=== PATIENT | female | born 1985 | race Caucasian/White ===

== ENCOUNTER 2018-04-12 16:35 | Emergency (ER) | payer BC, OTHER ==
[2018-04-12 16:50] VITALS: BP 109/70; PULSE 75; TEMP 98; BMI 31.4
--- NOTE | 2018-04-12 16:53 | PDOC ---
History of Present Illness - General Chief Complaint: Headache Stated Complaint: HEADACHE, DIZZINESS Time Seen by Provider: 04/12/18 16:52 Past History - Past Medical History Allergies/Adverse Reactions: Allergies Allergy/AdvReac Type Severity Reaction Status Date / Time No Known Allergies Allergy Verified 04/12/18 16:45 CVA: No (negative MRI for constant headache) COPD: No CHF: No - Suicide/Smoking/Psychosocial Hx Smoking History: Never smoked Have you smoked in the past 12 months: No Information on smoking cessation initiated: No Hx Alcohol Use: No Drug/Substance Use Hx: No Substance Use Type: None *Physical Exam - Vital Signs Last Vital Signs Temp Pulse Resp BP Pulse Ox 98.0 F 75 16 109/70 100 04/12/18 16:35 04/12/18 16:35 04/12/18 16:35 04/12/18 16:35 04/12/18 16:35
[2018-04-12] MEDS ORDERED: METOCLOPRAMIDE HCL INJECTION 10 MG/2 ML VIAL IVPUSH ONE (17:28)
[2018-04-12] MEDS ORDERED: ACETAMINOPHEN 325 MG TABLET (FP) PO ONE (17:28)
--- NOTE | 2018-04-12 17:41 | PDOC ---
History of Present Illness - General Chief Complaint: Headache Stated Complaint: HEADACHE, DIZZINESS Time Seen by Provider: 04/12/18 16:52 History Source: Patient Exam Limitations: No Limitations - History of Present Illness Initial Comments: 32 y/o F hx of migraines, recent vaginal delivery 02/21/18 presents with temporal LIAO x 6 months, gradually getting worse. States she had brain MRI done at [facility] in [place] on 02/19/18 which was negative. LIAO does not feel like her migraines. Presents today due to having intermittent vertigo from yesterday. States she feels like she is swaying on a boat. Mentions having dizziness in the past, but it has never been this bad. Dizziness is worse with looking up. Current LIAO is 6/10; states dizziness is bothering her more. Went to pharmacy and was given Meclizine 25 mg which she took around 1:30 PM, but states it did not help her much. Denies fever, ear pain, tinnitus, hearing loss , sob, cp, abd pain, n/v, visual disturbances, numbness/tingling of extremities. 04/12/18 17:37 Past History - Past Medical History Allergies/Adverse Reactions: Allergies Allergy/AdvReac Type Severity Reaction Status Date / Time No Known Allergies Allergy Verified 04/12/18 16:45 CVA: No (negative MRI for constant headache) COPD: No CHF: No - Suicide/Smoking/Psychosocial Hx Smoking History: Never smoked Have you smoked in the past 12 months: No Information on smoking cessation initiated: No Hx Alcohol Use: No Drug/Substance Use Hx: No Substance Use Type: None Review of Systems - Review of Systems Comments:: See HPI 04/12/18 18:17 *Physical Exam - Vital Signs Last Vital Signs Temp Pulse Resp BP Pulse Ox 98.0 F 75 16 109/70 100 04/12/18 16:35 04/12/18 16:35 04/12/18 16:35 04/12/18 16:35 04/12/18 16:35 - Physical Exam General Appearance: No: Apparent Distress HEENT: positive: CESILIA, Other (No nystagmus noted, no fluid noted in ear). negative: TM Bulging, TM Dull, TM Erythema Respiratory/Chest: positive: Lungs Clear, Normal Breath Sounds. negative: Respiratory Distress Cardiovascular: positive: Regular Rhythm, Regular Rate, S1, S2. negative: Murmur Gastrointestinal/Abdominal: positive: Normal Bowel Sounds, Soft. negative: Tender, Distended, Guarding, Rebound Extremity: positive: Normal Inspection. negative: Pedal Edema, Calf Tenderness Neurologic: positive: dock manager II-XII NML intact, Fully Oriented, Alert, Normal Mood/ Affect, Motor Strength 5/5, Other (Negative head thrust, negative test of skew) . negative: Numbness, Sensory Deficit ED Treatment Course - LABORATORY CBC & Chemistry Diagram: 04/12/18 17:49 04/12/18 17:49 Medical Decision Making - Medical Decision Making 32 y/o F hx of migraine with recent vaginal delivery 02/21/18 presents with acute vertigo x 2 days and chronic headache x 6 months. Likely BPPV. Also consider preeclampsia though less suspicious; it is 7 weeks post delivery and patient with normal BP. Less concerned for central vertigo due to acute onset of symptoms, no focal deficits on exam and negative HINTS exam. Less concerned for brain mass given patient had recent brain MRI outpatient 1 month ago which was negative. Plan: CBC, CMP, UA, Tylenol, Reglan, IVF 04/12/18 18:19 Labs unremarkable other than slightly elevated LFTs; no prior to compare to UA pending Patient reports improvement in LIAO and somewhat in dizziness Patient signed out to GREGORIA Rincon pending UA 04/12/18 18:57
[2018-04-12] MEDS ORDERED: SODIUM CHLORIDE 0.9% 1000 ML INFUS.BAG IV ONE (17:50)
[2018-04-12] MEDS ORDERED: ACETAMINOPHEN 1000 MG/100 ML VIAL (NON FORMULARY) IVPB ONE (17:54)
[2018-04-12] MEDS ORDERED: METOCLOPRAMIDE HCL INJECTION 10 MG/2 ML VIAL ONE (17:59)
[2018-04-12] MEDS ORDERED: ACETAMINOPHEN INJECTION 100 ML IVPB ONE (17:59)
[2018-04-12] MEDS ORDERED: SODIUM CHLORIDE 1,000 ML IV STA (18:01)
[2018-04-12 18:02] LABS: BASO % 0.4 % (0-2.0); EOS % 5.1 % (0-4.5); HEMATOCRIT 37.9 % (32.4-45.2); HEMOGLOBIN 13.1 GM/dL (10.7-15.3); LYMPH % 37.9 % (8-40); MCH 29.6 pg (25.7-33.7); MCHC 34.6 g/dl (32.0-36.0); MEAN CELL VOLUME 85.6 fl (80-96); MEAN PLT VOLUME 8.7 fl (7.5-11.1); NEUT % 51.6 % (42.8-82.8); PLATELET COUNT 269 K/MM3 (134-434); RBC 4.43 M/mm3 (3.60-5.2); RDW 15.4 % (11.6-15.6); WHITE BLOOD COUNT 6.3 K/mm3 (4.0-10.0)
[2018-04-12 18:28] LABS: ALBUMIN 3.9 g/dl (3.4-5.0); ALK PHOS 85 U/L (45-117); ANION GAP 8 MMOL/L (8-16); BILIRUBIN,TOTAL 0.2 mg/dL (0.2-1); BLOOD UREA NITROGEN 16 mg/dL (7-18); CHLORIDE 106 mmol/L (98-107); CO2 26 mmol/L (21-32); CREATININE 0.9 mg/dL (0.55-1.3); GLUCOSE,RANDOM 87 mg/dL (74-106); POTASSIUM 4.1 mmol/L (3.5-5.1); SGOT/AST 96 U/L (15-37); SGPT/ALT 198 U/L (13-61); SODIUM 140 mmol/L (136-145); TOT PROT 7.1 g/dl (6.4-8.2)
[2018-04-12 19:28] LABS: URINE APPEARANCE SLCLOUDY; URINE BILIRUBIN NEGATIVE (<2.0 mg/dL); URINE COLOR STRAW; URINE GLUCOSE (UA) NEGATIVE (NEGATIVE); URINE KETONE NEGATIVE (NEGATIVE); URINE LEUK ESTERASE 1+ (NEGATIVE); URINE NITRITE NEGATIVE (NEGATIVE); URINE PROTEIN NEGATIVE (NEGATIVE); URINE UROBILINOGEN NEGATIVE mg/dL (0.2-1.0)
--- NOTE | 2018-04-12 19:32 | PDOC ---
*Physical Exam - Vital Signs Last Vital Signs Temp Pulse Resp BP Pulse Ox 98.0 F 75 16 109/70 100 04/12/18 16:35 04/12/18 16:35 04/12/18 16:35 04/12/18 16:35 04/12/18 16:35 - Physical Exam Comments: 04/12/18 19:30 GENERAL: Well developed, well nourished. Awake and alert. No acute distress. HEENT: Normocephalic, atraumatic. PERRLA, EOMI. No conjunctival pallor. Sclera are non- icteric. Moist mucous membranes. Oropharynx is clear. NECK: Supple. Full ROM. No JVD. Carotid pulses 2+ and symmetric, without bruits. No thyromegaly. No lymphadenopathy. CARDIOVASCULAR: Regular rate and rhythm. No murmurs, rubs, or gallops. Distal pulses are 2+ and symmetric. PULMONARY: No evidence of respiratory distress. Lungs clear to auscultation bilaterally. No wheezing, rales or rhonchi. ABDOMINAL: Soft. Non-tender. Non-distended. No rebound or guarding. No organomegaly. Normoactive bowel sounds. MUSCULOSKELETAL Normal range of motion at all joints. No bony deformities or tenderness. No CVA tenderness. EXTREMITIES: No cyanosis. No clubbing. No edema. No calf tenderness. SKIN: Warm and dry. Normal capillary refill. No rashes. No jaundice. NEUROLOGICAL: Alert, awake, appropriate. Cranial nerves 2-12 intact. No deficits to light touch and temperature in face, upper extremities and lower extremities. No motor deficits in the in face, upper extremities and lower extremities. Normoreflexic in the upper and lower extremities. Normal speech. Toes are down- going bilaterally. Gait is normal without ataxia. PSYCHIATRIC: Cooperative. Good eye contact. Appropriate mood and affect. ED Treatment Course - LABORATORY CBC & Chemistry Diagram: 04/12/18 17:49 04/12/18 17:49 - ADDITIONAL ORDERS Additional order review: Laboratory Results 04/12/18 04/12/18 17:49 17:49 Sodium 140 Potassium 4.1 Chloride 106 Carbon Dioxide 26 Anion Gap 8 BUN 16 Creatinine 0.9 Creat Clearance w eGFR > 60 Random Glucose 87 Calcium 9.0 Total Bilirubin 0.2 AST 96 H ALT 198 H Alkaline Phosphatase 85 Total Protein 7.1 Albumin 3.9 Serum , Qual Negative 04/12/18 17:49 RBC 4.43 MCV 85.6 MCHC 34.6 RDW 15.4 MPV 8.7 Neutrophils % 51.6 Lymphocytes % 37.9 Monocytes % 5.0 Eosinophils % 5.1 H Basophils % 0.4 - Medications Given in the ED: ED Medications Discontinued Medications Generic Name Dose Route Start Last Admin Trade Name Phu PRN Reason Stop Dose Admin Acetaminophen 650 mg 04/12/18 17:28 04/12/18 18:09 Tylenol - PO 04/12/18 17:29 Not Given ONCE ONE Acetaminophen 1,000 mg 04/12/18 17:54 04/12/18 18:08 Ofirmev Injection - IVPB 04/12/18 17:55 1,000 mg ONCE ONE Administration Metoclopramide HCl 10 mg 04/12/18 17:28 04/12/18 18:08 Reglan Injection - IVPUSH 04/12/18 17:29 10 mg ONCE ONE Administration Sodium Chloride 1,000 ml 04/12/18 17:50 04/12/18 18:08 Normal Saline - IV 04/12/18 17:51 1,000 ml ONCE ONE Administration Progress Note - Progress Note Progress Note: 1911hrs: Patient states her pain level is now 1/10 dull nonradiating intermittent frontal headache without nausea/vomiting, dizziness, lightheadedness, neck stiffness/pain. Patient states she feels much better and wishes to be discharged. Patient was advised that UA results has not come in yet but is normal, she will be discharged. *DC/Admit/Observation/Transfer Diagnosis at time of Disposition: Vertigo Headache Qualifiers: Headache type: other headache syndrome Qualified Code(s): G44.89 - Other headache syndrome - Discharge Dispostion Condition at time of disposition: Stable Decision to Admit order: No - Referrals Referrals: Lul Mitchell MD [Staff Physician] - - Patient Instructions Printed Discharge Instructions: DI for Vertigo, DI for Headache Additional Instructions: Be sure to follow-up with the neurologist listed on your discharge within the next 2-3 days Rest Increase fluids Tylenol as needed for pain Return back to the emergency department for severe/persistent or worsening symptoms - Post Discharge Activity
[2018-04-12 19:41] LABS: EPI CELLS FEW /HPF (FEW); URINE BACTERIA RARE /hpf (NONE SEEN); URINE MUCUS RARE
== END 2018-04-12 19:55 | disposition home or self-care (01) ==
LOC: JER 16:35
PROC: 3E033NZ Introduction of Analgesics, Hypnotics, Sedatives into Peripheral Vein, Percutaneous Approach (ICD-10-PCS; principal; 2018-04-12)
PROC: 3E033GC Introduction of Other Therapeutic Substance into Peripheral Vein, Percutaneous Approach (ICD-10-PCS; 2018-04-12)
DX: R51 Headache (principal); R42 Dizziness and giddiness
CPT/HCPCS: 36415; 80053; 81003; 81015; 84703; 85025; 99282-25; J0131; J7030